=== PATIENT | male | born 1995 | race Caucasian/White ===

== ENCOUNTER 2019-05-31 14:36 | Emergency (ER) | payer OTHER ==
[~2019-05-31] VITALS: Ht 185.4 cm; Wt 130.0 kg
[2019-05-31 14:40] VITALS: BP 142/86
[2019-05-31] MEDS ORDERED: orphenadrine citrate 60mg/2ml inj. IM ONE (15:00)
[2019-05-31] MEDS ORDERED: ketorolac trometh inj. 60 MG/2 ML VIAL IM ONE (15:00)
[2019-05-31] MEDS ORDERED: NAPR-56 PO (15:47)
[2019-05-31] MEDS ORDERED: METH-360 PO (15:47)
== END 2019-05-31 16:02 | disposition home or self-care (01) ==
LOC: ER 14:37
DX: S39.012A Strain of muscle, fascia and tendon of lower back, initial encounter (principal); Z79.899 Other long term (current) drug therapy; X50.0XXA Overexertion from strenuous movement or load, initial encounter; Y93.89 Activity, other specified; Y92.89 Other specified places as the place of occurrence of the external cause; Y99.8 Other external cause status
CPT/HCPCS: 72100; 96372; 99283; J1885; J2360